=== PATIENT | male | born 1980 | race Hispanic/Latino ===

== ENCOUNTER → 2016-07-24 | Outpatient (CLI) | payer OTHER ==
--- NOTE | 2016-07-24 11:14 | DI ---
US ABDOMEN COMPLETE,07/24/2016 8:52 AM: Clinical History: Epigastric pain Previous Exam: None at this facility. Findings: Multiple grayscale and color Doppler sonographic images are obtained through the abdomen, and demonst rate a normal-appearing spleen. Gallbladder is unremarkable. The pancreas is not well seen. The common bile duct measures 3 mm. The gallbladder wall measures 2 mm. A negative sonographic Linares's sign was obtained. The right kidney measured 11.2 cm in length and the left kidney measured 11.8 cm in length. There is no evidence of hydronephrosis nor nephrolithiasis. There is diffuse fatty infiltration of the liver. Impression: Fatty infiltration otherwise unremarkable.
== END ==
LOC: US 08:49
PROVIDERS: ATTEND Family Medicine
DX: R10.13 Epigastric pain (principal); E80.6 Other disorders of bilirubin metabolism; K76.0 Fatty (change of) liver, not elsewhere classified
CPT/HCPCS: 76700

== ENCOUNTER 2017-01-12 10:10 | Emergency (ER) | payer OTHER ==
[2017-01-12 11:01] VITALS: RESP 15; TEMP 96.5
--- NOTE | 2017-01-12 11:48 | DI ---
HISTORY: Right knee pain and swelling. COMPARISON: None available. TECHNIQUE: Three (3) views. FINDINGS: There is mild narrowing of the medial tibiofemoral joint space. There is no acute fractur e or dislocation. Bony alignment and joint spaces are preserved. There is suprapatellar patellar ef fusion. IMPRESSION: 1. There is mild narrowing of the medial tibiofemoral joint space. 2. No acute fracture or dislocation. 3. There is suprapatellar patellar effusion. MRI is recommended.
--- NOTE | 2017-01-13 06:36 | PDOC ---
Lower Extremity Problem HPI - General Chief Complaint: Lower Extremity Problem/Injury Stated Complaint: RIGHT KNEE SWELLING/PAIN Date Seen by Provider: 01/12/17 Time Seen by Provider: 10:25 Source: POSITIVE: Patient Exam Limitations: POSITIVE: No limitations Nurse's Notes Reviewed & Considered: Yes - History of Present Illness Initial Comments: The patient is a 36-year-old male. He states that in early December he was treated for patellar bursitis of his right knee in [facility]. He states he was prescribed Bactrim for this problem. The redness and pain have resolved but he has continued to have some swelling and mild fluctuance over the patella and proximal to it, roughly in the distribution of the right patellar bursa. No pain with ambulation or weightbearing. No recent trauma. No fevers or chills. No sensory or motor symptoms. Body Location Affected: REPORTS: Lower Extremity (R) (Knee, as above) Timing: REPORTS: Constant Duration: >1 week (3-4 weeks) Severity: Mild Recent Injury: REPORTS: No Quality: REPORTS: "Pain" (. Slight tenderness superior to the patella at this time.) Modifying Factors: REPORTS: Nothing Exacerbates Associated Symptoms: DENIES: Chest Pain, Shortness of Breath, Rapid Heart Rate, Fainting, Other Similar Symptoms Previously: No Recent Care Received: REPORTS: Recently Seen, Treated by MD (As above) Any Prior Injuries Related to Current Complaint?: No - Patient Home Medications Home Medications: Home Medications Epinephrine [Epipen] 0.3 mg IM ONCE #1 packet 09/02/14 Pantoprazole Sodium [Protonix] 1 tab-cap PO DAILY #90 tab-cap 10/14/16 - Patient Allergies Allergies/Adverse Reactions: Allergies Allergy/AdvReac Type Severity Reaction Status Date / Time venom-wasp [wasp venom] Allergy Severe Anaphylaxis Verified 01/12/17 10:26 Past Medical History - heen HEENT History: Denies History Cardiovascular History: Denies History Additional Cardiovasular History: states has had increase BP the last 2 months Respiratory History: Denies History Additional Respiratory History: previous smoker Gastrointestinal History: GERD, Other (please comment) Additional Gastrointestinal History: ENLARGED LIVER (FATTY LIVER) WITH CHRONICALLY ELEVATED BILIRUBIN Genitourinary History: Denies History Endocrine History: Denies History Musculoskeletal History: Denies History Prosthesis or Implant: No Neurological History: Denies History Blood Disorders: Denies History Psychiatric History: Denies History History of Sexually Transmitted Diseases: No Cancer History: Denies History In Past Year Been Physically Harmed or Verbally Threatened: No (PER PATIENT) History of MDRO: No History of Other Communicable Diseases: No Tobacco Use: Current Every Day Smoker Alcohol Use: Occasionally Substance Use Type: None Previous Surgical History: No Significant Family History: Cancer Additional Family History: MOTHER AND FATHER Past Medical History Reviewed: Reviewed - No Changes ROS - Limitations ROS Limitations: No Limitations Constitution: REPORTS: Denies Symptoms Cardiovascular: REPORTS: Denies Cardiac Symptoms Respiratory: REPORTS: Denies Resp Symptoms Neurological: REPORTS: Denies Neuro Symptoms Gastrointestinal: REPORTS: Denies GI Symptoms Endocrine: REPORTS: Denies Symptoms Musculoskeletal: REPORTS: Other (Some mild effusion left patellar bursa). DENIES: Back Pain, Calf Pain, Joint Pain, Lower Extremity Swelling, Muscle Aches , Neck Pain, Pedal Edema, Recent Injury Genitourinary: REPORTS: Denies Symptoms Eyes: REPORTS: Denies Symptoms ENT: REPORTS: Denies Symptoms Skin: REPORTS: Denies Skin Symptoms Lympathic: REPORTS: Denies Lympathic Symptoms Immunologic: POSITIVE: Denies Symptoms Psychiatric: POSITIVE: Denies Psych Symptoms Lower Ext Problem Exam - General Appearance General Appearance: POSITIVE: Alert, Cooperative, No Acute Distress, No Evidence of Trauma - Extremities Lower Extremity: POSITIVE: Normal Inspection, Non-Tender, No Pedal Edema, Swelling (Mild effusion left patellar bursa) Joint Exam: POSITIVE: Joints Normal, Normal ROM, Normal Gait, Normal Weight Bearing, Other (Mild effusion left patellar bursa. 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 Nml, Pharynx Inspect. Nml, PERRL, EOMI - Respiratory / CVS Respiratory / CVS: POSITIVE: No Respiratory Distress, Breath Sounds Normal, Regular Rate/Rhythm, Heart Sounds Normal Peripheral Pulses: Radial (R): 2+, Radial (L): 2+, Dorsalis-pedis (R): 2+, Dorsalis-pedis (L): 2+ - Abdomen Abdomen: Soft: (All Quadrants), Normal Bowel Sounds: (All Quadrants), Denies Tenderness: (All Quadrants), No Splenomegaly: (All Quadrants), No Hepatomegaly: (All Quadrants), No Guarding: (All Quadrants), No Rebound: (All Quadrants), No Palpable Pulse: (All Quadrants), No Palpabale Mass: (All Quadrants), No Distention: (All Quadrants), No Rigidity: (All Quadrants) Images - Uploaded Photos Uploaded Photos: - Lower Extremities Lower Extremities: 1 - Mild effusion right patellar bursa Lower Ext Problem Progress - Results Reviewed by me Xrays/CTs/US Reviewed by me: Yes Discussed with Radiologist: No Radiology Findings: Effusion suprapatellar area - Patient's Progress Pain Medication Addressed: POSITIVE: Yes (Recommend Advil or Tylenol) School/Work Release Addressed: POSITIVE: Yes (May return to work with no restrictions) Re-Examine Time: 10:55 Status: POSITIVE: Unchanged - Consult Counseled: POSITIVE: Patient, RE: Radiology Results, RE: DX, RE: Need for F/U Patient Care Time - Estimated PCT Patient Care Time (In Minutes): 23 Vital Signs - VS Reviewed Vital Signs Reviewed: Yes Discharge Clinical Impression: Effusion of bursa of knee Discharge Disposition: Discharged to Home Condition: Stable Patient Instructions Given at Discharge: Knee Bursitis (ED) Additional Instructions: I believe that you had a patellar bursitis of your right knee in early December, which has been treated. He is still have some residual fluid, or effusion, and the patellar bursa of the right knee. I do not believe you have any active infections at this time. This fluid in your patellar bursa should slowly resorb. X-ray of your right knee is normal. An Bola wrap or knee support might be helpful. Return anytime if condition worsens. Follow-up with your primary care provider or orthopedist. Follow Up With: ONIEL RAI [Primary Care Provider] - (Instructions as above. Follow-up with your primary care provider or orthopedist. Return here anytime if condition worsens.)
== END 2017-01-12 11:13 | disposition home or self-care (01) ==
LOC: ER 10:10
DX: M25.461 Effusion, right knee (principal); M25.561 Pain in right knee
CPT/HCPCS: 73562; 99282

== ENCOUNTER → 2017-03-06 | Outpatient (CLI) | payer OTHER ==
--- NOTE | 2017-03-06 10:53 | EKG ---
[address] [address] Measurements Intervals [place] Rate: 82 P: 53 ND: 167 QRS: 84 QRSD: 101 T: 26 QT: 360 QTc: 399 Interpretive Statements SINUS RHYTHM Compared to ECG 07/16/2016 16:53:05 Sinus tachycardia no longer present Electronically Signed On 03-06-17 13:00:07 MDT by Mehdi Tatum [email or web address]
[2017-03-06 11:18] LABS: BASOPHILS # (AUTO) 0.06 10*3/UL; BASOPHILS % (AUTO) 0.6 % (0-1); EOSINOPHILS # (AUTO) 0.16 10*3/UL; EOSINOPHILS % (AUTO) 1.5 % (0-8); HEMATOCRIT 49.5 % (42.0-52.0); HEMOGLOBIN 18.1 g/dL (14.0-18.0); LYMPHOCYTES # (AUTO) 0.94 10*3/uL; MEAN CORPUSCULAR HEMOGLOBIN 30.4 PG (27-31); MEAN CORPUSCULAR HGB CONC 36.6 g/dL (33-37); MEAN CORPUSCULAR VOLUME 83.2 FL (80-90); MEAN PLATELET VOLUME 8.9 FL (7.4-12.2); MONOCYTES % (AUTO) 6.7 % (5-15); NEUTROPHILS % (AUTO) 81.9 % (50-80); RED BLOOD COUNT 5.95 10^6/uL (4.70-6.10)
[2017-03-06 11:33] LABS: PLATELET MORPHOLOGY COMMENT NORMAL MORPHOLOGY (NORM); RBC MORPHOLOGY COMMENT NORMAL MORPHOLOGY (NORM); WBC MORPHOLOGY COMMENT NORMAL MORPHOLOGY (NORM)
[2017-03-06 11:44] LABS: BLOOD UREA NITROGEN 12 mg/dL (7-22); BUN/CREATININE RATIO 13.33 (6-20); CALCIUM 9.8 mg/dL (8.7-10.7); CHOL/HDL RATIO 3.22 RATIO (0-4.0); EST GLOMERULAR FILTRATION > 60 (>60 ml/min/1.73m(2)); HDL CHOLESTEROL 44 mg/dL (40-150); SERUM ALBUMIN 4.6 g/dL (3.5-4.8); SERUM CHOLESTEROL 142 mg/dL (120-200)
--- NOTE | 2017-03-06 13:18 | DI ---
History: Chest pain Comparison: September 07, 2015 Findings: Heart pulmonary vasculature unremarkable Lungs are fully expanded and clear. There is no pleural effusion No gross osseous abnormalities No changes compared with September 07, 2015 Impression Unremarkable plain film study of the chest
== END ==
LOC: MOB EKG 10:44
PROVIDERS: ATTEND Family Medicine
DX: R07.9 Chest pain, unspecified (principal); Z72.0 Tobacco use
CPT/HCPCS: 36415; 71020; 80053; 80061; 84443; 84484; 85025; 93005; 93010